=== PATIENT | male | born 1965 | race Caucasian/White ===

== ENCOUNTER 2018-10-01 10:54 | Observation (INO) ==
[2018-10-01] MEDS ORDERED: ceFAZolin 2 GM IV; once IV.SIG SCH (12:15)
[2018-10-01] MEDS ORDERED: Chlorhexidine Gluconate 2% 1 Pack (2 Cloths) TOPICAL ONE (12:23)
[2018-10-01] MEDS ORDERED: Metoprolol Tartrate 25 MG Tablet PO ONE (12:23)
[2018-10-01] MEDS ORDERED: Sodium Chloride 0.9% 2 ML Flush PRN IV.FLUSH (12:31)
[2018-10-01] MEDS ORDERED: Sodium Chlor 0.9% Inj 500 ML IV.SIG ONE (13:00)
[2018-10-01] MEDS ORDERED: Bupivacaine/Epinephrine PF Inj 0.5% 30 ML Vial ONE (13:07)
[2018-10-01] MEDS ORDERED: HYDROmorphone PF Inj 1 MG/ML Ampul ONE (13:15)
[2018-10-01] MEDS ORDERED: Lidocaine PF 1% Inj 5 ML Syringe OTHER ONE (13:22)
[2018-10-01] MEDS ORDERED: Glycopyrrolate Inj 1 MG/5 ML Syringe IV.PUSH ONE (13:22)
[2018-10-01] MEDS ORDERED: Neostigmine Inj 5 MG/5 ML Syringe IV.PUSH ONE (13:22)
[2018-10-01] MEDS ORDERED: Normosol-R pH 7.4 Inj 1,000 ML IV.CONT ONE (13:22)
[2018-10-01] MEDS ORDERED: Bupivacaine Liposomal PF 1.3% Inj 20 ML Vial ONE (13:28)
--- NOTE | 2018-10-01 13:33 | P.OP ---
- Preoperative Diagnosis (1) Incisional hernia - Postoperative Diagnosis (1) Incisional hernia Procedure: lap incisional hernia repair with mesh Anesthesia: GETA Surgeon: Sarbjit Hall MD Estimated blood loss (mL): 5 Pathology: none sent Operation and Findings: small incisional hernia
[2018-10-01] MEDS ORDERED: Bupivacaine Liposomal PF 1.3% Inj 20 ML Vial INFILTRATN ONE (14:36)
[2018-10-01] MEDS ORDERED: Sennosides Liq 8.8 MG/5 ML UDC PO ONE (15:00)
[2018-10-01] MEDS ORDERED: fentaNYL Citrate Inj 100 MCG/2 ML Ampul ONE (15:16)
[2018-10-01] MEDS ORDERED: *Meperidine Inj 25 MG/ML Vial PERIprocedural Use ONLY ONE (15:24)
[2018-10-01] MEDS ORDERED: *Ondansetron Inj 4 MG/2 ML Vial PERIprocedural Use ONLY ONE (15:25)
[2018-10-01] MEDS ORDERED: *morphine SULFATE 4 MG/ML PERIprocedure ONLY ONE ×3 (15:31→15:55)
[2018-10-01] MEDS ORDERED: Post-op Orders (for Pharmacy) OTHER ONE (15:37)
[2018-10-01] MEDS ORDERED: Promethazine 25 MG Supp RECTAL PRN (15:37)
[2018-10-01] MEDS ORDERED: Bisacodyl 10 MG Supp RECTAL PRN (15:37)
--- NOTE | 2018-10-01 16:16 | MP ---
cc: Sarbjit Hall MD DATE OF OPERATION: 10/01/2018 PREOPERATIVE DIAGNOSIS: Incisional hernia. POSTOPERATIVE DIAGNOSIS: Incisional hernia. PROCEDURE PERFORMED: Laparoscopic incisional hernia repair with underlay mesh 10 x 10 cm. SURGEON: Sarbjit Hall MD WAFER SLICER: None. ANESTHESIA: GETA. IV FLUIDS: See anesthesia sheet. ESTIMATED BLOOD LOSS: 5 mL. DRAINS: None. COMPLICATIONS: None. WOUND CLASSIFICATION: Clean. FINDINGS: A small midline incisional hernia. INDICATIONS: The patient is a 48-year-old male who presents with midline abdominal pain and small incisional hernia. The patient states that hernias from previous scar as a child and was in consideration for getting it repaired. DETAILS OF PROCEDURE: The patient was taken to the operating suite and placed in supine position. He was prepped and draped in usual sterile fashion after induction of general endotracheal anesthesia. Brief timeout done stating correct patient, procedure, and surgical site. We were all in agreement with this. Attention first directed to the left upper quadrant where local anesthetic, Exparel was injected. A small incision was made. A 5 mm Optiview Visiport was entered into the abdomen safely. Abdomen insufflated to 15 mmHg pneumoperitoneum. The 2 other ports were placed, one in the left lower quadrant and the left mid quadrant port, 5 mm. A small incisional defect was noted. This was reduced. The monopolar scissor electrocautery was used to take down the falciform ligament and some anterior abdominal wall, subcutaneous fat. Once the peritoneum was cleaned off, the small incisional hernia defect was closed primarily with a #1 V-Loc running suture. Following this, a 10 x 10 Synecor mesh, originally 12 x 12 cut down to 10 x 10 mesh, was obtained. Crossroads sutures were placed at 4 points of the mesh. The mesh was then rolled and placed into the 5 port and entered the abdomen. The 4 o'clock, 12 o'clock, 3 o'clock, 6 o'clock and 9 o'clock positions were tacked with transfascial sutures to secure the mesh in place. Tacks were used in a radial fashion in order to further secure the mesh in place. Exparel was injected in all incision sites. Pneumoperitoneum was removed. The ports were removed, 4-0 Monocryl used for all subcuticular reports. Sterile dressings including Mastisol and Steri-Strips were placed. The patient tolerated the procedure well. No intraoperative complications. All lap and instrument counts correct at end of procedure. The patient was extubated and taken stable to PACU. MD SHIRA Bowden/bart , 03:08 PM , 03:19 PM
[2018-10-01] MEDS: Sod Chloride 0.9% Inj 1,000 ML IV.CONT SCH (17:05)
[2018-10-01] MEDS: Morphine Sulfate Inj 2 MG/ML Vial IV.PUSH PRN (21:47)
[2018-10-01] MEDS: ceFAZolin 1 GM Premix Inj 1 GM/50 ML IV.SIG SCH (21:47)
[2018-10-01] MEDS: Senna/Docusate Sodium 8.6/50 MG Tablet PO SCH (21:48)
[2018-10-01] MEDS: Sodium Chloride 0.9% 2 ML Flush BID IV.FLUSH SCH (21:48)
[2018-10-02] MEDS: Morphine Sulfate Inj 2 MG/ML Vial IV.PUSH PRN ×2 (04:13→08:52)
[2018-10-02] MEDS: ceFAZolin 1 GM Premix Inj 1 GM/50 ML IV.SIG SCH ×2 (05:29→12:15)
[2018-10-02] MEDS: Sod Chloride 0.9% Inj 1,000 ML IV.CONT SCH (05:50)
--- NOTE | 2018-10-02 08:31 | P.PNGS ---
Subjective Patient reports: feels better, pain is less Physical Exam Vital signs: Vital Signs 10/01/18 08:45 10/01/18 12:05 10/01/18 15:05 Temperature 98.2 F 98.9 F 98.2 F Pulse Rate 89 84 87 Respiratory Rate 17 16 15 Blood Pressure 115/55 L 147/89 H 186/98 H Pulse Oximetry 94 L 98 10/01/18 15:15 10/01/18 15:30 10/01/18 19:00 Temperature 98.6 F Pulse Rate 83 84 Respiratory Rate 13 13 Blood Pressure 163/82 H 112/65 Pulse Oximetry 95 96 95 10/02/18 00:00 10/02/18 04:00 Temperature 98.0 F 98.0 F Pulse Rate 61 74 Respiratory Rate 17 17 Blood Pressure 123/62 119/59 L Pulse Oximetry 94 L 96 Intake & Output 10/01/18 10/02/18 10/02/18 18:59 06:59 18:59 Intake Total 1650 / 1650 200 / 200 Output Total 5 / 5 925 / 925 Balance 1645 / 1645 -725 / -725 Weight 81.1 kg 81 kg Intake: IV 1150 / 1150 200 / 200 LR 1000 mL Inj 1,000 ML @ 30 1000 / 1000 mls/hr IV.SIG .Q24H LEANNA Rx#: [id number] Ancef 1 GM Premix Inj 1 gm In 100 / 100 50 ml @ 100 mls/hr IV.SIG Q8H LEANNA Rx#:[id number] Ancef 2 GM Premix Inj 2 gm In 50 / 50 50 ml @ 100 mls/hr IV.SIG [employer]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
[2018-10-02] MEDS: Senna/Docusate Sodium 8.6/50 MG Tablet PO SCH (08:52)
[2018-10-02] MEDS: Sodium Chloride 0.9% 2 ML Flush BID IV.FLUSH SCH (08:57)
[2018-10-02 09:25] VITALS: RESP 18
[2018-10-02 12:28] VITALS: BP 119/62; PULSE 59; TEMP 97.9; O2SAT 95
== END 2018-10-02 13:37 | disposition home or self-care (01) ==
LOC: HSDI 10:54 → HSDC 10:54 → N06 19:53
PROVIDERS: ADMIT Surgery; ATTEND Surgery